=== PATIENT | female | born 1995 | race Caucasian/White ===

== ENCOUNTER 2020-05-16 08:39 | Inpatient (IN) ==
[2020-05-16] MEDS ORDERED: OXYTOCIN 30 UNITS/500 ML BAG IV PRN ×2 (10:13→13:45)
[2020-05-16] MEDS ORDERED: PENICILLIN G POTASSIUM 6 MU in DEXTROSE 5% 250 ML IV STA (10:19)
[2020-05-16 10:40] LABS: Hematocrit (blood only) 34.6 % (37-47); Hemoglobin 11.3 g/dL (12.0-16.0); Mean Corpuscular Hemoglobin 26.2 pg (25-34); Mean Corpuscular Volume 80.1 fL (80-100); Mean Platelet Volume 11.9 fL (7.4-10.4); Platelet Count 195 K/uL (130-400); RDW Coefficient of Variation 14.1 % (11.5-14.5); RDW Standard Deviation 41.5 fL (36.4-46.3); Red Blood Count 4.32 M/uL (4.2-5.4); White Blood Count 11.09 K/uL (4.8-10.8)
[2020-05-16 10:43] LABS: Mean Corpuscular Hgb Conc 32.7 g/dL (32-36)
[2020-05-16 11:02] LABS: Albumin Level 2.5 gm/dl (3.4-5.0); BUN Creatinine Ratio 17.2 (10-20); Creatinine Clr Calc Pharmacy 198.3 ml/min; Est GFR (African American) 148.1; Est GFR (Non-African American) 127.8; Potassium 4.1 mmol/L (3.5-5.1)
[2020-05-16 11:05] LABS: Albumin Globulin Ratio 0.6 (0.9-2); Bilirubin,Total 0.4 mg/dl (0.2-1); Globulin 4.2 gm/dl (2.5-4.0); Total Protein 6.7 gm/dl (6.4-8.2)
--- NOTE | 2020-05-16 13:32 | History & Physical Report ---
Date of Service May 16, 2020 Assessment & Plan (1) Obesity affecting in third trimester, antepartum: (2) Chronic hypertension during , antepartum: Patient is a 25-year-old -0-0-1 at 39 weeks and 3 days of gestation being admitted for induction of labor at term due to class III obesity during , chronic hypertension, on labetalol, GBS positive. Vital signs stable afebrile, heart rate reassuring Coronavirus negative Labs/ LFT within normal limits Plan to admit monitor, oxytocin for induction of labor and AROM when able. Patient desires to wait before we start induction of labor today All questions were answered. (3) GBS (group B Streptococcus carrier), +RV culture, currently : Admission and Anticipated Discharge Date Admission Date: May 16, 2020 History of Present Illness Primary Care Provider: NO PCP Patient is a 25-year-old -0-0-1 at 39 weeks and 3 days of gestation who is being admitted for scheduled induction of labor at term due to class III obesity during and history of chronic hypertension. Patient has no complaints. She denies contractions, leakage of fluid, vaginal bleeding, headaches, change in her vision, epigastric or right upper upper quadrant pain. She reports good movements. Her has been complicated by above and GBS positive. Allergies Allergy/AdvReac Type Severity Reaction Status Date / Time No Known Allergies Allergy Unverified 05/12/20 00:34 Home Medications Home Medications Medication Instructions Recorded Confirmed Type PNV cmb#95-ferrous fumarate-FA 1 tab PO DAILY 05/12/20 05/16/20 History [] labetalol 200 mg PO TID 05/12/20 05/16/20 History Patient History Medical History Gestational diabetes HX with prior Gestational hypertension HX with prior , currently taking labetalol 200mg TID Vaginal delivery 04/10/18 [facility] in [place] Family History Other No history of previous surgery Social History Smoking Status: Never smoker Do You Dip or Chew Tobacco: No; Hx Alcohol Use: No Hx Substance Use: No Preferred Language: Andorran Communication Ability: Effective 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 Review of Systems All systems reviewed & are unremarkable except as noted in HPI & below Physical Exam Constitutional: WD/WN, vitals as above well developed and well nourished Patient is comfortably laying in the bed, smiling and very happy. Gastrointestinal (Abdomen): normal bowel sounds, soft, nontender, no hepatosplenomegaly (Gravid, Rigoberto 7/8 pounds) Genitourinary: normal external appearance Manual OB Exam: + cervical dilation 3 cm, + cervical effacement 50% and + station -2 OB Exam Monitor Tracing: + external uterine monitor used and + category I Results & Data ([facility]) Vital Signs (Past 12 Hours) Vital Signs Temp Pulse Resp BP 05/16/20 11:32 36.8 C 05/16/20 11:31 72 132/78 05/16/20 09:33 36.6 C 05/16/20 09:30 93 H 114/73 Laboratory Results Lab Results 05/16/20 05/16/20 05/16/20 Range/Units 10:28 10:28 10:28 WBC 11.09 H (4.8-10.8) K/uL RBC 4.32 (4.2-5.4) M/uL Hgb 11.3 L (12.0-16.0) g/dL Hct 34.6 L (37-47) % MCV 80.1 (80-100) fL MCH 26.2 (25-34) pg MCHC 32.7 (32-36) g/dL RDW Std Deviation 41.5 (36.4-46.3) fL RDW Coeff of Jaimie 14.1 (11.5-14.5) % Plt Count 195 (130-400) K/uL MPV 11.9 H (7.4-10.4) fL Sodium 139 (136-145) mmol/L Potassium 4.1 (3.5-5.1) mmol/L Chloride 110 H (98-107) mmol/L Carbon Dioxide 23 (21-32) mmol/L Anion Gap 6.0 (3-11) BUN 10 (7-18) mg/dl Creatinine 0.56 L (0.6-1.2) mg/dl Est Cr Clr Drug Dosing 198.3 ml/min Est GFR ( Amer) 148.1 Est GFR (Non-Af Amer) 127.8 BUN/Creatinine Ratio 17.2 (10-20) Glucose 84 (70-99) mg/dl Calcium 9.0 (8.5-10.1) mg/dl Total Bilirubin 0.4 (0.2-1) mg/dl AST 15 (15-37) U/L ALT 16 (12-78) U/L Alkaline Phosphatase 123 H (45-117) U/L Total Protein 6.7 (6.4-8.2) gm/dl Albumin 2.5 L (3.4-5.0) gm/dl Globulin 4.2 H (2.5-4.0) gm/dl Albumin/Globulin Ratio 0.6 L (0.9-2) Blood Type B Positive Antibody Screen NEGATIVE
[2020-05-16] MEDS: LACTATED RINGER'S 1,000 ML IV PRN ×2 (14:39→20:02)
[2020-05-16] MEDS: LABETALOL HCL 200 MG TAB PO SCH ×2 (14:41→21:02)
[2020-05-16] MEDS: PENICILLIN G POTASSIUM 3 MU in DEXTROSE 5% 100 ML IV PRN ×2 (18:24→22:17)
[2020-05-16] MEDS ORDERED: ePHEDrine sulfate 50 MG/ML AMP ONE (19:45)
[2020-05-16] MEDS ORDERED: BUPIVACAINE 0.25% 30 ML VIAL ONE (19:45)
[2020-05-16] MEDS ORDERED: fentaNYL 2MCG/ML ROPIV 1.25MG/ML 100 ML BAG EPI ONE (19:46)
[2020-05-16] MEDS ORDERED: fentaNYL citrate 100 MCG/2 ML VIAL ONE (19:46)
--- NOTE | 2020-05-16 20:10 | Anesthesiology Consultation ---
Date of Service May 16, 2020 Assessment & Plan (1) Encounter for pre-operative examination: Chart Review Chart Review: Patient NOT seen in Pre Admission Testing and Acceptable Risk for Labor Epidural Consults Requested none ASA ASA3 Proposed Anesthesia Anesthesia Type: Labor Epidural Risk / Benefits Reviewed With: PT / POA / Parent / Guardian, Accepts Plan and Informed Consent Obtained History Height/Weight Height: 5 ft 4 in Weight: 126.099 kg Allergies Allergy/AdvReac Type Severity Reaction Status Date / Time No Known Allergies Allergy Unverified 05/12/20 00:34 Medications Home Medications Medication Instructions Recorded Confirmed Last Taken PNV cmb#95-ferrous fumarate-FA 1 tab PO DAILY 05/12/20 05/16/20 05/15/20 [] labetalol 200 mg PO TID 05/12/20 05/16/20 05/16/20 06:00 Active Medications Generic Name Dose Route Start Last Admin Trade Name Freq PRN Reason Stop Dose Admin Lactated Ringer's 1,000 mls @ 150 mls/hr 05/16/20 10:13 05/16/20 20:02 Lr IV 05/18/20 10:12 150 mls/hr .[id number] PRN Administration L&D Protocol Protocol Penicillin G Potassium 3 mu/ 106 mls @ 100 mls/hr 05/16/20 10:13 05/16/20 18:24 Dextrose IV 05/26/20 10:12 100 mls/hr Q4H PRN Administration Give until delivery Oxytocin 30 units in 500 mls @ 10 mls/hr 05/16/20 13:45 05/16/20 20:54 Pitocin IV 05/18/20 13:44 0.6 units/hr .Q24H PRN 10 mls/hr Labor Induction/Augmentation Titration Protocol 0.6 UNITS/HR Labetalol HCl 200 mg 05/16/20 14:00 05/16/20 21:02 Labetalol Hcl 200 Mg Tab PO 06/15/20 13:59 200 mg TID GINA Administration NPO Date Last Intake of Fluids: 05/16/20 Time Last Intake of Fluids: 20:09 Date Last Intake of Solids: 05/16/20 Time Last Intake of Solids: 13:00 Past Medical History Medical History Gestational diabetes HX with prior Gestational hypertension HX with prior , currently taking labetalol 200mg TID Hyperprolactinemia Obesity PCOS (polycystic ovarian syndrome) (spontaneous vaginal delivery) 04/10/2018 - Male - "[facility]rew" Vaginal delivery 04/10/18 [facility] in [place] Exercise / Class Metabolic Activity III < 4 Walking/Shop/Light housework Past Family History Family History Other No history of previous surgery Past Anesthesia History No Hx of Anesthesia Complications History of PONV No Hx of PONV Social History Smoking Status: Never smoker Do You Dip or Chew Tobacco: No Hx Alcohol Use: No Hx Substance Use: No Review of Systems Patient denies history of abnormal bleeding or bleeding disorder. Patient denies active use of anticoagulants other than low dose aspirin. Patient denies active symptoms of GERD. Patient denies numbness, tingling or weakness in lower extremities. Physical Exam Vital Signs Last Vital Signs Temp 36.7 C 05/16/20 14:42 Pulse 64 05/16/20 21:13 Resp 20 05/16/20 21:05 BP 138/63 05/16/20 21:12 Pulse Ox 98 05/16/20 21:13 Constitutional not obese (gravid uterus) ENMT Mouth: no TMJ abnormality and oral opening not small Thyromental Distance: > or= 3.5 Finger Breadths Mallampati Class: II Neck normal visual inspection; neck extension not limited Respiratory normal respiratory effort Auscultation: lungs clear to auscultation bilaterally Cardiovascular Rate/Rhythm: regular rate and regular rhythm Heart Sounds: no murmur Neurologic moves all extremities Motor/Sensory: no sensory deficit Psychiatric Orientation: alert and oriented x 3 Testing Laboratory Results 05/16/20 10:28 05/16/20 10:28 Blood Type B Positive 05/16/20 10:28 Antibody Screen NEGATIVE 05/16/20 10:28
[2020-05-16] MEDS ORDERED: NALOXONE HCL 1 MG in SODIUM CHLORIDE 0.9% 1000ML 1,000 ML IV PRN (21:21)
[2020-05-16] MEDS ORDERED: ONDANSETRON INJ 2 MG/ML 2 ML VIAL IV PRN (21:21)
[2020-05-16] MEDS ORDERED: ePHEDrine sulfate 50 MG/ML AMP IV PRN (21:21)
[2020-05-16] MEDS ORDERED: fentaNYL 2MCG/ML ROPIV 1.25MG/ML 100 ML BAG EPI PRN (21:21)
[2020-05-16] MEDS ORDERED: NALOXONE HCL 0.4 MG/1 ML VIAL/CARP IV PRN (21:21)
[2020-05-16] MEDS ORDERED: DiphenhydrAMINE HCL 50 MG/ML VIAL IV PRN (21:21)
--- NOTE | 2020-05-16 21:39 | Obstetrical Progress Note ---
Date of Service May 16, 2020 Assessment & Plan Admission and Anticipated Discharge Date Admission Date: May 16, 2020 Subjective Patient is reevaluated. She received epidural for pain and comfortable Pitocin is at 10 MIU/ min Received 2 doses of penicillin. heart rate category 1. Vaginal exam cervix is 4 cm dilated, 60%,-2 station, AROM with clear fluid. IUPC is placed to monitor contractions better and adjust dose of Pitocin. Results & Data ([facility]) Vital Signs (Past 12 Hours) Vital Signs Temp Pulse Resp BP Pulse Ox 05/16/20 21:34 58 L 150/72 H 05/16/20 21:33 59 L 97 05/16/20 21:28 64 97 05/16/20 21:23 72 98 05/16/20 21:18 60 98 05/16/20 21:13 64 98 05/16/20 21:12 62 138/63 05/16/20 21:08 62 98 05/16/20 21:06 60 137/66 05/16/20 21:05 20 05/16/20 21:03 63 98 05/16/20 21:02 70 119/57 L 05/16/20 20:58 77 124/60 98 05/16/20 20:54 71 117/55 L 05/16/20 20:53 71 98 05/16/20 20:52 62 120/60 05/16/20 20:50 61 20 148/61 H 05/16/20 20:48 67 139/78 98 05/16/20 20:46 59 L 128/58 L 05/16/20 20:43 59 L 98 05/16/20 20:42 66 149/73 H 05/16/20 20:39 63 151/81 H 05/16/20 20:38 60 97 05/16/20 20:37 63 149/74 H 05/16/20 20:36 69 162/84 H 05/16/20 20:33 69 97 05/16/20 20:28 64 98 05/16/20 20:23 63 98 05/16/20 20:18 72 98 05/16/20 20:13 64 98 05/16/20 20:10 63 160/79 H 05/16/20 18:56 66 161/78 H 05/16/20 18:03 80 141/77 H 05/16/20 16:55 89 18 137/74 05/16/20 15:53 82 18 132/72 05/16/20 14:42 36.7 C 83 20 135/65 05/16/20 11:32 36.8 C 20 05/16/20 11:31 72 132/78
--- NOTE | 2020-05-16 23:36 | Obstetrical Progress Note ---
Date of Service May 16, 2020 Assessment & Plan Admission and Anticipated Discharge Date Admission Date: May 16, 2020 Subjective Patient is reevaluated No complaints FHR has been having early decels with peak of ctxs to 90's from 130's with quick recovery to baseline, good variability in between VE; 5/ 70%/ -1 Ctxs q 2-3 min, IUPC in, adequate contractions Continue to monitor closely Results & Data ([facility]) Vital Signs (Past 12 Hours) Vital Signs Temp Pulse Resp BP Pulse Ox 05/16/20 23:33 65 97 05/16/20 23:28 67 96 05/16/20 23:23 65 97 05/16/20 23:18 55 L 125/74 97 05/16/20 23:13 70 97 05/16/20 23:08 62 98 05/16/20 23:03 64 98 05/16/20 23:02 53 L 130/61 05/16/20 23:00 36.9 C 16 05/16/20 22:58 61 97 05/16/20 22:53 55 L 96 05/16/20 22:48 65 112/68 97 05/16/20 22:43 67 98 05/16/20 22:38 65 98 05/16/20 22:35 20 05/16/20 22:33 63 97 05/16/20 22:32 58 L 132/72 05/16/20 22:28 80 97 05/16/20 22:23 61 96 05/16/20 22:20 20 05/16/20 22:18 63 96 05/16/20 22:17 67 142/72 H 05/16/20 22:13 56 L 95 05/16/20 22:08 55 L 94 05/16/20 22:07 55 L 94 05/16/20 22:05 20 05/16/20 22:03 53 L 95 05/16/20 22:02 53 L 141/70 H 05/16/20 21:58 54 L 96 05/16/20 21:53 65 97 05/16/20 21:50 20 05/16/20 21:49 54 L 144/70 H 05/16/20 21:48 54 L 97 05/16/20 21:43 60 98 05/16/20 21:38 59 L 96 05/16/20 21:35 36.5 C 20 05/16/20 21:34 58 L 150/72 H 05/16/20 21:33 59 L 97 05/16/20 21:28 64 97 05/16/20 21:23 72 98 05/16/20 21:20 20 05/16/20 21:18 60 98 05/16/20 21:13 64 98 05/16/20 21:12 62 138/63 05/16/20 21:08 62 98 05/16/20 21:06 60 137/66 05/16/20 21:05 20 05/16/20 21:03 63 98 05/16/20 21:02 70 119/57 L 05/16/20 20:58 77 124/60 98 05/16/20 20:54 71 117/55 L 05/16/20 20:53 71 98 05/16/20 20:52 62 120/60 05/16/20 20:50 61 20 148/61 H 05/16/20 20:48 67 139/78 98 05/16/20 20:46 59 L 128/58 L 05/16/20 20:43 59 L 98 05/16/20 20:42 66 149/73 H 05/16/20 20:39 63 151/81 H 05/16/20 20:38 60 97 05/16/20 20:37 63 149/74 H 05/16/20 20:36 69 162/84 H 05/16/20 20:33 69 97 05/16/20 20:28 64 98 05/16/20 20:23 63 98 05/16/20 20:18 72 98 05/16/20 20:13 64 98 05/16/20 20:10 63 160/79 H 05/16/20 18:56 66 161/78 H 05/16/20 18:03 80 141/77 H 05/16/20 16:55 89 18 137/74 05/16/20 15:53 82 18 132/72 05/16/20 14:42 36.7 C 83 20 135/65
[2020-05-17] MEDS: LACTATED RINGER'S 1,000 ML IV PRN (00:42)
--- NOTE | 2020-05-17 01:07 | Obstetrical Progress Note ---
Date of Service May 17, 2020 Assessment & Plan Admission and Anticipated Discharge Date Admission Date: May 16, 2020 Subjective Patient was reevaluated FHR was having recurrent early decels cervix was 8-9/ 90% 0, IUPC was removed, IVF bolus and Nasal O2 were started Patient tried pushes with each ctxs and cervix was reduced to 10 but still at 0 station, did not move down with pushing FHR improved with pushes, 120-130's no decels, moderate variability Will let patient labor down until head would be lower Continue to monitor closely Results & Data ([facility]) Vital Signs (Past 12 Hours) Vital Signs Temp Pulse Resp BP Pulse Ox 05/17/20 01:03 78 135/63 99 05/17/20 00:58 84 99 05/17/20 00:56 110 H 88 L 05/17/20 00:53 121 H 98 05/17/20 00:50 76 126/85 89 L 05/17/20 00:48 81 100 05/17/20 00:43 99 H 98 05/17/20 00:42 96 H 84 L 05/17/20 00:38 114 H 100 05/17/20 00:33 68 155/110 H 100 05/17/20 00:28 62 100 05/17/20 00:23 71 99 05/17/20 00:18 85 99 05/17/20 00:13 78 100 05/17/20 00:08 64 100 05/17/20 00:03 86 98 05/16/20 23:58 87 96 05/16/20 23:53 61 97 05/16/20 23:48 61 135/63 96 05/16/20 23:43 62 97 05/16/20 23:38 55 L 96 05/16/20 23:35 70 125/67 05/16/20 23:33 65 97 05/16/20 23:28 67 96 05/16/20 23:23 65 97 05/16/20 23:18 55 L 125/74 97 05/16/20 23:13 70 97 05/16/20 23:08 62 98 05/16/20 23:03 64 98 05/16/20 23:02 53 L 130/61 05/16/20 23:00 36.9 C 16 05/16/20 22:58 61 97 05/16/20 22:53 55 L 96 05/16/20 22:48 65 112/68 97 05/16/20 22:43 67 98 05/16/20 22:38 65 98 05/16/20 22:35 20 05/16/20 22:33 63 97 05/16/20 22:32 58 L 132/72 05/16/20 22:28 80 97 05/16/20 22:23 61 96 05/16/20 22:20 20 05/16/20 22:18 63 96 05/16/20 22:17 67 142/72 H 05/16/20 22:13 56 L 95 05/16/20 22:08 55 L 94 05/16/20 22:07 55 L 94 05/16/20 22:05 20 05/16/20 22:03 53 L 95 05/16/20 22:02 53 L 141/70 H 05/16/20 21:58 54 L 96 05/16/20 21:53 65 97 05/16/20 21:50 20 05/16/20 21:49 54 L 144/70 H 05/16/20 21:48 54 L 97 05/16/20 21:43 60 98 05/16/20 21:38 59 L 96 05/16/20 21:35 36.5 C 20 05/16/20 21:34 58 L 150/72 H 05/16/20 21:33 59 L 97 05/16/20 21:28 64 97 05/16/20 21:23 72 98 05/16/20 21:20 20 05/16/20 21:18 60 98 05/16/20 21:13 64 98 05/16/20 21:12 62 138/63 05/16/20 21:08 62 98 05/16/20 21:06 60 137/66 05/16/20 21:05 20 05/16/20 21:03 63 98 05/16/20 21:02 70 119/57 L 05/16/20 20:58 77 124/60 98 05/16/20 20:54 71 117/55 L 05/16/20 20:53 71 98 05/16/20 20:52 62 120/60 05/16/20 20:50 61 20 148/61 H 05/16/20 20:48 67 139/78 98 05/16/20 20:46 59 L 128/58 L 05/16/20 20:43 59 L 98 05/16/20 20:42 66 149/73 H 05/16/20 20:39 63 151/81 H 05/16/20 20:38 60 97 05/16/20 20:37 63 149/74 H 05/16/20 20:36 69 162/84 H 05/16/20 20:33 69 97 05/16/20 20:28 64 98 05/16/20 20:23 63 98 05/16/20 20:18 72 98 05/16/20 20:13 64 98 05/16/20 20:10 63 160/79 H 05/16/20 18:56 66 161/78 H 05/16/20 18:03 80 141/77 H 05/16/20 16:55 89 18 137/74 05/16/20 15:53 82 18 132/72 05/16/20 14:42 36.7 C 83 20 135/65
[2020-05-17] MEDS ORDERED: DIPHTHERIA/TETANUS/PERTUSSIS 0.5 ML SYR/VIAL IM ONE (02:17)
[2020-05-17] MEDS ORDERED: SUPERCREAM 0.870% 15 GM JAR EXT PRN (02:17)
[2020-05-17] MEDS ORDERED: ACETAMINOPHEN 325 MG TAB PO PRN (02:17)
[2020-05-17] MEDS ORDERED: HYDROCORTISONE ACETATE 25 MG SUPP PR PRN (02:17)
[2020-05-17] MEDS ORDERED: bisacodyL 10 MG SUPP PR PRN (02:17)
[2020-05-17] MEDS ORDERED: MEASLES, MUMPS & RUBELLA VIRUS VIAL SQ ONE (02:17)
[2020-05-17] MEDS ORDERED: BENZOCAINE 20% AER SPR 82.5 GM CAN EXT PRN (02:17)
[2020-05-17] MEDS ORDERED: OXYTOCIN 30 UNITS/500 ML BAG IV PRN (02:17)
--- NOTE | 2020-05-17 03:06 | Anesthesiology Progress Note ---
Date of Service May 17, 2020 Anesthesia Post Procedure Vital Signs Vital Signs: Temp Pulse Resp BP Pulse Ox 05/17/20 02:59 97 H 145/63 H 05/17/20 02:43 82 114/58 L 05/17/20 02:33 112 H 114/65 05/17/20 02:21 119/94 05/17/20 01:58 100 H 97 05/17/20 01:57 105 H 90 05/17/20 01:53 110 H 98 05/17/20 01:51 120 H 86 L 05/17/20 01:48 96 H 100 05/17/20 01:43 87 99 05/17/20 01:38 112 H 99 05/17/20 01:34 81 110/73 05/17/20 01:33 80 99 05/17/20 01:28 76 99 05/17/20 01:23 76 99 05/17/20 01:19 93 H 137/65 05/17/20 01:18 90 100 05/17/20 01:13 88 100 05/17/20 01:08 83 99 05/17/20 01:03 78 135/63 99 05/17/20 00:58 84 99 05/17/20 00:56 110 H 88 L 05/17/20 00:53 121 H 98 05/17/20 00:50 76 126/85 89 L 05/17/20 00:48 81 100 05/17/20 00:43 99 H 98 05/17/20 00:42 96 H 84 L 05/17/20 00:38 114 H 100 05/17/20 00:33 68 155/110 H 100 05/17/20 00:28 62 100 05/17/20 00:23 71 99 05/17/20 00:18 85 99 05/17/20 00:13 78 100 05/17/20 00:08 64 100 05/17/20 00:03 86 98 05/16/20 23:58 87 96 05/16/20 23:53 61 97 05/16/20 23:48 61 135/63 96 05/16/20 23:43 62 97 05/16/20 23:38 55 L 96 05/16/20 23:35 70 125/67 05/16/20 23:33 65 97 05/16/20 23:28 67 96 05/16/20 23:23 65 97 09/30/20 23:18 55 L 125/74 97 05/16/20 23:13 70 97 05/16/20 23:08 62 98 05/16/20 23:03 64 98 05/16/20 23:02 53 L 130/61 05/16/20 23:00 36.9 C 16 05/16/20 22:58 61 97 05/16/20 22:53 55 L 96 05/16/20 22:48 65 112/68 97 05/16/20 22:43 67 98 05/16/20 22:38 65 98 05/16/20 22:35 20 05/16/20 22:33 63 97 05/16/20 22:32 58 L 132/72 05/16/20 22:28 80 97 05/16/20 22:23 61 96 05/16/20 22:20 20 05/16/20 22:18 63 96 05/16/20 22:17 67 142/72 H 05/16/20 22:13 56 L 95 05/16/20 22:08 55 L 94 05/16/20 22:07 55 L 94 05/16/20 22:05 20 05/16/20 22:03 53 L 95 05/16/20 22:02 53 L 141/70 H 05/16/20 21:58 54 L 96 05/16/20 21:53 65 97 05/16/20 21:50 05/16/20 21:49 54 L 144/70 H 05/16/20 21:48 54 L 97 05/16/20 21:43 60 98 05/16/20 21:38 59 L 96 05/16/20 21:35 36.5 C 05/16/20 21:34 58 L 150/72 H 05/16/20 21:33 59 L 97 05/16/20 21:28 64 97 05/16/20 21:23 72 98 05/16/20 21:20 20 05/16/20 21:18 60 98 05/16/20 21:13 64 98 05/16/20 21:12 62 138/63 05/16/20 21:08 62 98 05/16/20 21:06 60 137/66 05/16/20 21:05 20 05/16/20 21:03 63 98 05/16/20 21:02 70 119/57 L 05/16/20 20:58 77 124/60 98 05/16/20 20:54 71 117/55 L 05/16/20 20:53 71 98 05/16/20 20:52 62 120/60 05/16/20 20:50 61 20 148/61 H 05/16/20 20:48 67 139/78 98 05/16/20 20:46 59 L 128/58 L 05/16/20 20:43 59 L 98 05/16/20 20:42 66 149/73 H 05/16/20 20:39 63 151/81 H 05/16/20 20:38 60 97 05/16/20 20:37 63 149/74 H 05/16/20 20:36 69 162/84 H 05/16/20 20:33 69 97 05/16/20 20:28 64 98 05/16/20 20:23 63 98 05/16/20 20:18 72 98 05/16/20 20:13 64 98 05/16/20 20:10 63 160/79 H 05/16/20 18:56 66 161/78 H 05/16/20 18:03 80 141/77 H 05/16/20 16:55 89 18 137/74 05/16/20 15:53 82 18 132/72 05/16/20 14:42 36.7 C 83 20 135/65 05/16/20 11:32 36.8 C 05/16/20 11:31 72 132/78 05/16/20 09:33 36.6 C 05/16/20 09:30 93 H 114/73 Pain Intensity Abdomen: Pain Intensity: 6 Transfer of Care Handoff Completed per policy Notes Mental Status: alert / awake / arousable and participated in evaluation Patient Amnestic to Procedure: No Nausea / Vomiting: adequately controlled Pain: adequately controlled Airway Patency, RR, SpO2: stable & adequate BP & HR: stable & adequate Hydration State: stable & adequate Neuraxial Anesthesia: was administered and sensory block is resolving Anesthetic Complications: no major complications apparent and Pt Satisfied with anesthetic care
[2020-05-17] MEDS ORDERED: KETOROLAC 30 MG/ML VIAL ONE (03:10)
--- NOTE | 2020-05-17 04:56 | Delivery Summary ---
DATE OF OPERATION: 05/17/2020 TIME OF DELIVERY: 1:57 a.m. DETAILS OF DELIVERY: The patient was found to be fully dilated and desired to push. She pushed for about half an hour, but could not bring the baby down and then she opted to labor down for about half an hour. She felt painful and pressure and she pushed for another 10 minutes and delivered the head without difficulty. There was a nuchal cord around the neck x1 which was reduced. Shoulders were delivered with minimal traction. Baby was handed off to the mother where mouth and nose were suctioned. Cord was clamped x2 and cut and baby was handed off to the waiting pediatric team. Cord blood was obtained and then vagina and perineum were checked for lacerations. They were intact. No lacerations/tears were found. Placenta was found to be in the vagina, delivered spontaneous as intact and complete. Uterus was explored, found to be empty. Lower segment was cleared of all clots and debris. EBL was 200 mL. Fundus was firm. Mom and baby tolerated the procedure well. Sponge, lap, needle count was correct x3. Baby was a viable female , Apgars 8/9, weight is pending. No complications happened and I was present during whole procedure. I attest to the content of the Intraoperative Record and any orders documented therein. Any exception s are noted below.
[2020-05-17] MEDS: IBUPROFEN 600 MG TAB PO PRN ×3 (07:37→20:47)
[2020-05-17] MEDS: LABETALOL HCL 200 MG TAB PO SCH ×3 (07:39→22:17)
[2020-05-17] MEDS: FERROUS SULFATE 325 MG TAB PO SCH (08:39)
[2020-05-17] MEDS: PRENATAL VITAMIN 1 TAB PO SCH (08:39)
[2020-05-17] MEDS: DOCUSATE SODIUM 100 MG CAP PO SCH ×2 (08:39→20:47)
[2020-05-18] MEDS: IBUPROFEN 600 MG TAB PO PRN (06:32)
[2020-05-18] MEDS: LABETALOL HCL 200 MG TAB PO SCH (06:32)
[2020-05-18 06:50] LABS: Hemoglobin 10.2 g/dL (12.0-16.0); Mean Corpuscular Hemoglobin 25.8 pg (25-34); Mean Corpuscular Hgb Conc 31.9 g/dL (32-36); Mean Platelet Volume 11.7 fL (7.4-10.4); Platelet Count 157 K/uL (130-400); RDW Coefficient of Variation 14.6 % (11.5-14.5); RDW Standard Deviation 43.2 fL (36.4-46.3); Red Blood Count 3.95 M/uL (4.2-5.4)
[2020-05-18] MEDS: DOCUSATE SODIUM 100 MG CAP PO SCH (08:31)
[2020-05-18] MEDS: FERROUS SULFATE 325 MG TAB PO SCH (08:31)
[2020-05-18] MEDS: PRENATAL VITAMIN 1 TAB PO SCH (08:31)
--- NOTE | 2020-05-18 09:39 | Obstetrical Progress Note ---
Date of Service May 18, 2020 Assessment & Plan (1) Normal course: PPD #2 pt doing well No complaints d/c home with instructions Subjective Ambulation: ambulating normally Voiding: no voiding problems Passing Gas:: Yes Diet Tolerance:: regular diet Lochia:: Small Feeding Type:: breast feeding Review of Systems All systems reviewed & are unremarkable except as noted in HPI & below Physical Exam Constitutional WD/WN, vitals as above well developed and well nourished Eyes PERRL, conjunctivae normal, anicteric sclerae Neck trachea midline, no thyromegaly Respiratory normal respiratory effort, lungs clear to auscultation Auscultation: no crackles, no rales and no wheezes Cardiovascular RRR, no murmur, no edema Gastrointestinal (Abdomen) normal bowel sounds, soft, nontender, no hepatosplenomegaly Uterus is below umbilicus Musculoskeletal no cyanosis or clubbing, extremities motor strength 5/5 Skin no rashes, warm and dry Neurologic patellar DTR's 2+ bilat, sensation intact Psychiatric A+Ox3, euthymic affect Genitourinary normal external appearance Results & Data ([facility]) Vital Signs (Past 12 Hours) Vital Signs Temp Pulse Pulse Resp BP Pulse Ox 05/18/20 08:00 36.5 C 61 18 152/94 H 99 05/18/20 06:34 66 149/88 H 05/17/20 23:45 36.7 C 71 20 144/84 H 99 05/17/20 22:00 59 L 142/89 H
[2020-05-18] MEDS ORDERED: bisacodyL 5 MG TABEC PO SCH (20:00)
== END 2020-05-18 11:15 | disposition home or self-care (01) | DRG 807 ==
LOC: 4S1 08:39 → 4S2 05-17 04:05